=== PATIENT | female | born 1970 | race Hispanic/Latino ===

== ENCOUNTER 2024-03-09 11:24 | Inpatient (IN) | payer OTHER ==
[2024-03-09] MEDS ORDERED: Morphine 4 MG/ML VIAL ONE (12:17)
[2024-03-09] MEDS ORDERED: Acetaminophen/Codeine 30-300mg Tablet PO PRN (12:18)
[2024-03-09] MEDS ORDERED: Ondansetron ODT 4 MG TAB PO PRN (12:18)
[2024-03-09] MEDS ORDERED: Acetaminophen 325 MG TAB PO PRN (12:18)
[2024-03-09 12:36] LABS: #Basophils 0.03 10x3/uL (0.0-0.2); #Eosinophils Less than 0.03 10x3/uL (0.0-0.7); %Basophils 0.4 % (0.0-1.0); %Lymphocytes 7.6 % (21.0-51.0); %Monocytes 10.1 % (0.0-10.0); %Neutrophils 81.7 % (42.0-75.0); Hemoglobin 13.6 g/dL (12.0-16.0); Mean Corpuscular Hemoglobin 31.5 pg (27.0-31.0); Mean Corpuscular Volume 92.6 fL (78.0-98.0); Mean Platelet Volume 9.6 fL (7.4-10.4); Platelet Count 312 10x3/uL (130-400); RBC Distribution Width 13.2 % (11.5-14.5); Red Blood Cell (RBC) Count 4.32 mill/uL (4.20-5.40)
[2024-03-09 12:48] LABS: PTT 25.1 sec (22.9-36.1); Prothrombin Time 13.5 sec (12.0-14.7)
[2024-03-09 12:49] LABS: ALT (SGPT) 21 U/L (8-55); AST (SGOT) 24 U/L (5-34); Albumin 3.7 g/dL (3.5-5.0); Alkaline Phosphatase 76 U/L (40-110); Anion Gap 14 mmol/L (10-20); BUN (Urea Nitrogen) 12 mg/dL (9.8-20.1); Bilirubin, Total 1.4 mg/dL (0.2-1.2); Calc. Creatinine Clearance 0 mL/min (70-130); Calcium 8.6 mg/dL (7.8-10.44); Carbon Dioxide 22 mmol/L (22-29); Chloride 107 mmol/L (98-107); Estimated GFR 85; Globulin 2.5 g/dL (2.4-3.5); Glucose 94 mg/dL (70-105); Potassium 4.3 mmol/L (3.5-5.1); Protein, Total 6.2 g/dL (6.0-8.3); Sodium 139 mmol/L (136-145)
[2024-03-09] MEDS ORDERED: Fentanyl 250 MCG/5 ML VIAL ONE (13:23)
[2024-03-09] MEDS ORDERED: Midazolam HCl 2 mg/2 ml Vial ONE ×2 (13:23→13:32)
[2024-03-09] MEDS ORDERED: Ketamine In 0.9 % NaCl 50 MG/5 ML SYRINGE ONE (13:25)
[2024-03-09] MEDS ORDERED: Lidocaine 2% PF 5 ML VIAL ONE (13:26)
[2024-03-09] MEDS ORDERED: Rocuronium Bromide 10 MG/ML (10ML VIAL) ONE ×2 (13:26→16:00)
[2024-03-09] MEDS ORDERED: Scopolamine 1 mg/72 hour Patch ONE (13:32)
[2024-03-09] MEDS ORDERED: Famotidine/PF 20 mg/2ml Vial ONE (13:33)
[2024-03-09] MEDS ORDERED: CEFAZOLIN 2 GM VIAL ONE (13:47)
[2024-03-09] MEDS ORDERED: SUCCINYLCHOLINE/SOD CL,ISO/PF 200 MG/10 ML SYRINGE FS ONE (13:58)
[2024-03-09] MEDS ORDERED: Ondansetron PF 4 MG/2 ML Vial ONE ×2 (14:10→17:14)
[2024-03-09] MEDS ORDERED: Dexamethasone 4 mg/ml Vial ONE (14:10)
[2024-03-09] MEDS ORDERED: SUGAMMADEX SODIUM 200 MG/2 ML VIAL ONE (14:14)
[2024-03-09] MEDS ORDERED: PROPOFOL 20 ML ONE (14:20)
[2024-03-09] MEDS ORDERED: Metoprolol Tartrate 5 MG (5 mL) VIAL ONE (15:09)
[2024-03-09] MEDS ORDERED: hydrALAZINE 20 MG/ML VIAL ONE (15:26)
[2024-03-09] MEDS ORDERED: Ondansetron HCl/PF 4 MG/2 ML Vial IVP PRN (17:18)
[2024-03-09] MEDS ORDERED: HYDROmorphone 2 MG/ML VIAL SLOW IVP PRN (17:18)
[2024-03-09] MEDS ORDERED: Promethazine HCl 25 MG/ML VIAL IM PRN (17:18)
[2024-03-09] MEDS ORDERED: Promethazine HCl 25 MG/ML VIAL ONE (17:20)
[2024-03-09] MEDS ORDERED: HYDROmorphone 0.5 MG/0.5 ML SYRINGE ONE ×2 (17:23→18:13)
[2024-03-09] MEDS ORDERED: fentaNYL PF 100 MCG/2 ML SYRINGE ONE (17:23)
[2024-03-09] MEDS ORDERED: Acetaminophen W/ Codeine 5 ML UDCUP PO PRN (17:34)
[2024-03-09] MEDS ORDERED: Ketorolac Tromethamine 30 MG (1 mL) VIAL IVP SCH (18:00)
[2024-03-09] MEDS ORDERED: fentaNYL 50 mcg/mL 1 mL Vial ONE (18:13)
[2024-03-09] MEDS: CEFAZOLIN 2 GM in Sodium Chloride 0.9% 100 ML IVPB SCH (20:43)
[2024-03-09] MEDS: fentaNYL 50 mcg/mL 1 mL Vial SLOW IVP PRN (20:45)
[2024-03-09] MEDS: Ondansetron PF 4 MG/2 ML Vial IVP PRN (20:50)
[2024-03-10 03:24] LABS: #Basophils Less than 0.03 10x3/uL (0.0-0.2); #Eosinophils Less than 0.03 10x3/uL (0.0-0.7); %Basophils 0.2 % (0.0-1.0); %Lymphocytes 2.2 % (21.0-51.0); %Neutrophils 88.1 % (42.0-75.0); Hematocrit 43.8 % (36.0-47.0); Hemoglobin 14.5 g/dL (12.0-16.0); Mean Corpuscular HGB CONC 33.1 g/dL (32.0-36.0); Mean Corpuscular Hemoglobin 30.4 pg (27.0-31.0); Mean Corpuscular Volume 91.8 fL (78.0-98.0); Mean Platelet Volume 10.5 fL (7.4-10.4); Platelet Count 357 10x3/uL (130-400); RBC Distribution Width 13.3 % (11.5-14.5); Red Blood Cell (RBC) Count 4.77 mill/uL (4.20-5.40)
[2024-03-10 03:43] LABS: ALT (SGPT) 119 U/L (8-55); AST (SGOT) 208 U/L (5-34); Albumin 3.2 g/dL (3.5-5.0); Alkaline Phosphatase 74 U/L (40-110); Anion Gap 14 mmol/L (10-20); BUN (Urea Nitrogen) 12 mg/dL (9.8-20.1); Bilirubin, Total 0.9 mg/dL (0.2-1.2); Calc. Creatinine Clearance 101 mL/min (70-130); Calcium 8.4 mg/dL (7.8-10.44); Carbon Dioxide 21 mmol/L (22-29); Chloride 106 mmol/L (98-107); Estimated GFR 93; Globulin 2.9 g/dL (2.4-3.5); Glucose 168 mg/dL (70-105); Potassium 4.3 mmol/L (3.5-5.1); Protein, Total 6.1 g/dL (6.0-8.3); Sodium 137 mmol/L (136-145)
[2024-03-10] MEDS ORDERED: hydrALAZINE 20 MG/ML VIAL SLOW IVP PRN (03:47)
[2024-03-10] MEDS ORDERED: Labetalol HCl 100 MG/20 ML VIAL SLOW IVP PRN (03:47)
[2024-03-10] MEDS: Labetalol HCl 100 MG/20 ML VIAL SLOW IVP PRN (06:22)
[2024-03-10] MEDS: Labetalol HCl 100 MG/20 ML VIAL ONE (06:25)
[2024-03-10] MEDS: Enoxaparin 40 MG (0.4 mL) SYRINGE SC SCH (08:15)
[2024-03-10] MEDS: Morphine 2 MG/ML VIAL SLOW IVP PRN (11:32)
[2024-03-10] MEDS: Acetaminophen 650 MG/20.3 ML UDCUP PO PRN (12:23)
[2024-03-10] MEDS: Simethicone Chewable 80 MG TAB PO PRN (17:54)
[2024-03-10] MEDS: D5 1/2 NS w/10 mEq KCl 1,000 ML/1,000 ML BAG IV SCH (19:51)
[2024-03-11 05:00] LABS: Hematocrit 35.8 % (36.0-47.0); Hemoglobin 11.8 g/dL (12.0-16.0); Mean Platelet Volume 10.4 fL (7.4-10.4); Platelet Count 335 10x3/uL (130-400); RBC Distribution Width 13.2 % (11.5-14.5); Red Blood Cell (RBC) Count 3.81 mill/uL (4.20-5.40)
[2024-03-11 05:37] LABS: Anion Gap 13 mmol/L (10-20); BUN (Urea Nitrogen) 12 mg/dL (9.8-20.1); Calc. Creatinine Clearance 93 mL/min (70-130); Calcium 8.4 mg/dL (7.8-10.44); Carbon Dioxide 24 mmol/L (22-29); Chloride 103 mmol/L (98-107); Estimated GFR 84; Glucose 156 mg/dL (70-105); Sodium 136 mmol/L (136-145)
[2024-03-11 05:39] LABS: Band 22 % (5-11); Lymphocytes 6 % (21-51); Macrocytosis SLIGHT = 6-15 cells HPF (0-5); Monocytes 6 % (0-10); Neutrophil 66 % (42-75); Platelet Adequacy Comment Platelets Normal; Polychromasia SLIGHT = 2-3 cells HPF (0-2)
[2024-03-11 06:30] VITALS: BMI 28.0
[2024-03-11] MEDS ORDERED: Multivit, Adult Inj 10 ML VIAL IV SCH (11:30)
[2024-03-11] MEDS: Thiamine HCl 200 MG/2 ML VIAL SLOW IVP SCH (14:14)
[2024-03-11] MEDS: Multivitamins, Adult 10 ML in Sodium Chloride 0.9% 500 ML IV SCH (14:16)
[2024-03-11] MEDS: Folic Acid 0.4 MG in Admixture Fee 1 EACH SC SCH (14:17)
[2024-03-12] MEDS ORDERED: MD-Gastroview 120 ML BOT ONE (08:21)
[2024-03-12] MEDS ORDERED: Folic Acid 5 MG/ML MDV SC SCH (09:00)
[2024-03-13 05:10] LABS: #Basophils 0.03 10x3/uL (0.0-0.2); %Basophils 0.4 % (0.0-1.0); %Eosinophils 2.9 % (0.0-10.0); %Lymphocytes 10.5 % (21.0-51.0); %Monocytes 12.1 % (0.0-10.0); %Neutrophils 73.3 % (42.0-75.0); Hematocrit 28.8 % (36.0-47.0); Hemoglobin 9.4 g/dL (12.0-16.0); Mean Corpuscular HGB CONC 32.6 g/dL (32.0-36.0); Mean Corpuscular Hemoglobin 30.1 pg (27.0-31.0); Mean Corpuscular Volume 92.3 fL (78.0-98.0); Mean Platelet Volume 9.8 fL (7.4-10.4); Platelet Count 332 10x3/uL (130-400); RBC Distribution Width 12.9 % (11.5-14.5); Red Blood Cell (RBC) Count 3.12 mill/uL (4.20-5.40)
[2024-03-13 05:18] LABS: Anion Gap 11 mmol/L (10-20); BUN (Urea Nitrogen) 7 mg/dL (9.8-20.1); Calc. Creatinine Clearance 130 mL/min (70-130); Calcium 8.6 mg/dL (7.8-10.44); Carbon Dioxide 25 mmol/L (22-29); Chloride 103 mmol/L (98-107); Estimated GFR 107; Glucose 87 mg/dL (70-105); Potassium 3.1 mmol/L (3.5-5.1); Sodium 136 mmol/L (136-145)
[2024-03-13] MEDS ORDERED: Multivit, Adult Inj 10 ML VIAL IV SCH (10:45)
[2024-03-13 10:46] VITALS: BMI 28.9
[2024-03-13] MEDS: Thiamine HCl 200 MG/2 ML VIAL SLOW IVP SCH (13:22)
[2024-03-13] MEDS: buPROPion 75 MG TAB PO SCH (20:55)
[2024-03-13] MEDS: QUEtiapine 200 MG TAB PO SCH (20:55)
[2024-03-14] MEDS ORDERED: Pantoprazole DR 40 MG TAB PO SCH (09:00)
[2024-03-14] MEDS ORDERED: BuPROPion XL 150 MG ER.TAB PO SCH (09:00)
[2024-03-14] MEDS ORDERED: Folic Acid 5 MG/ML MDV SC SCH (09:00)
[2024-03-14] MEDS ORDERED: Thiamine 100 MG TAB PO SCH (09:00)
[2024-03-14] MEDS ORDERED: Folic Acid 1 MG TAB PO SCH (09:00)
[2024-03-14] MEDS ORDERED: Cyanocobalamin (Vitamin B-12) 1,000 MCG TAB PO SCH ×2 (09:00)
[2024-03-14] MEDS: Sertraline 100 MG TAB PO SCH (10:09)
[2024-03-14] MEDS: Multivits W-Minerals Liquid 15 ML UDCUP PER TUBE SCH (10:10)
[2024-03-14] MEDS: Folic Acid 0.4 MG in Syringe 0 ML SC SCH (10:10)
[2024-03-14] MEDS: Lansoprazole 30 MG/10 ML UDCUP PO SCH (10:10)
[2024-03-16 16:13] VITALS: BP 112/77; TEMP 98.3
== END 2024-03-16 17:56 | disposition home or self-care (01) | DRG 328 ==
LOC: ERS 11:24 → SDC 12:59 → CCU 20:10 → SURG B 03-10 12:45
PROVIDERS: ADMIT Surgery; ATTEND Surgery
PROC: 0DB60ZZ Excision of Stomach, Open Approach (ICD-10-PCS; principal; 2024-03-09)
PROC: 0DB40ZZ Excision of Esophagogastric Junction, Open Approach (ICD-10-PCS; 2024-03-09)
PROC: 0DH60UZ Insertion of Feeding Device into Stomach, Open Approach (ICD-10-PCS; 2024-03-09)
DX: K28.5 Chronic or unspecified gastrojejunal ulcer with perforation (principal); Z98.84 Bariatric surgery status; Z88.5 Allergy status to narcotic agent; Z88.8 Allergy status to other drugs, medicaments and biological substances; Z91.018 Allergy to other foods; F31.9 Bipolar disorder, unspecified; F17.290 Nicotine dependence, other tobacco product, uncomplicated; Z96.652 Presence of left artificial knee joint; Z79.1 Long term (current) use of non-steroidal anti-inflammatories (NSAID); Z79.899 Other long term (current) drug therapy; Z79.01 Long term (current) use of anticoagulants
CPT/HCPCS: 36415; 74240; 80048; 80053; 85014; 85018; 85025; 85610; 85730; 86850; 86900; 86901; 88307; 93005; 94760; 96374; A4314; A4649; C1776; C1778; J0360; J1100; J1171; J1650; J2250; J2272; J2405; J2550; J2704; J3010; J3411; J3480; J3490; J7030; Q9963; Q9968

== ENCOUNTER 2024-03-23 09:20 | Inpatient (IN) | payer OTHER ==
[2024-03-23 10:15] LABS: #Basophils 0.09 10x3/uL (0.0-0.2); %Basophils 0.5 % (0.0-1.0); %Eosinophils 0.4 % (0.0-10.0); %Lymphocytes 5.9 % (21.0-51.0); %Monocytes 7.8 % (0.0-10.0); %Neutrophils 84.9 % (42.0-75.0); Hemoglobin 11.6 g/dL (12.0-16.0); Mean Corpuscular HGB CONC 33.1 g/dL (32.0-36.0); Mean Corpuscular Hemoglobin 29.8 pg (27.0-31.0); Mean Platelet Volume 9.2 fL (7.4-10.4); Platelet Count 985 10x3/uL (130-400); RBC Distribution Width 13.4 % (11.5-14.5); Red Blood Cell (RBC) Count 3.89 mill/uL (4.20-5.40)
[2024-03-23 10:31] LABS: ALT (SGPT) 10 U/L (8-55); AST (SGOT) 19 U/L (5-34); Albumin 2.8 g/dL (3.5-5.0); Alkaline Phosphatase 87 U/L (40-110); Anion Gap 15 mmol/L (10-20); BUN (Urea Nitrogen) 14 mg/dL (9.8-20.1); Calc. Creatinine Clearance 0 mL/min (70-130); Calcium 9.2 mg/dL (7.8-10.44); Carbon Dioxide 24 mmol/L (22-29); Chloride 101 mmol/L (98-107); Estimated GFR 76; Globulin 4.3 g/dL (2.4-3.5); Glucose 113 mg/dL (70-105); Potassium 3.7 mmol/L (3.5-5.1); Protein, Total 7.1 g/dL (6.0-8.3); Sodium 136 mmol/L (136-145)
[2024-03-23 10:36] LABS: Troponin I Less than 0.010 ng/mL (< 0.028)
[2024-03-23 10:46] LABS: INR-International Normal Ratio 1.2; Prothrombin Time 14.8 sec (12.0-14.7)
[2024-03-23] MEDS ORDERED: Sodium Chloride 0.9% 100 ML ONE (10:50)
[2024-03-23] MEDS ORDERED: Piperacillin/Tazobactam 3.375 GM VIAL ONE (10:50)
[2024-03-23] MEDS ORDERED: Ondansetron PF 4 MG/2 ML Vial ONE (10:50)
[2024-03-23 10:52] LABS: Bacteria/HPF None Seen HPF (None Seen); Bilirubin Negative (Negative); Blood, Urine 1+ (Negative); CAUTI Indications for Culture Dysuria,urgency,freq; Clarity Turbid (Clear); Glucose, Urine (Dipstick) Normal (Negative); Ketone, Urine Negative (Negative); Leukocyte 500 Leu/uL (Negative); Mucous/LPF 1+ LPF (<2+); Nitrite Negative (Negative); Protein, Urine (Dipstick) 50 mg/dL (Neg-Trace); Renal Epithelial 0-3 HPF (None Seen); Specific Gravity, Urine 1.028 (1.002-1.036); Urobilinogen Normal mg/dL (Less than 2); WBC/HPF Greater than 50 HPF (0-3)
[2024-03-23 11:22] LABS: Urine Culture Reflex Yes Yes
[2024-03-23 12:35] LABS: Bilirubin, Total 0.6 mg/dL (0.2-1.2)
[2024-03-23] MEDS ORDERED: Ondansetron PF 4 MG/2 ML Vial IVP PRN (14:45)
[2024-03-23] MEDS ORDERED: Ondansetron ODT 4 MG TAB PO PRN (14:45)
[2024-03-23] MEDS ORDERED: Acetaminophen 325 MG TAB PO PRN (14:45)
[2024-03-23] MEDS: Vancomycin (BATCH) 1.75 GM in Premix 1 BAG IVPB SCH (16:25)
[2024-03-23] MEDS: Piperacillin/Tazobactam 3.375 GM in Sodium Chloride 0.9% 100 ML IVPB SCH (16:37)
[2024-03-23 16:44] VITALS: BMI 26.2
[2024-03-23] MEDS: Ketorolac Tromethamine 30 MG (1 mL) VIAL IVP SCH ×2 (17:33→17:34)
[2024-03-23] MEDS: Acetaminophen 500 MG TAB PO SCH ×2 (17:34→22:35)
[2024-03-23] MEDS: Lactated Ringer's 1,000 ML IV SCH ×3 (18:45→20:31)
[2024-03-23] MEDS: Enoxaparin 40 MG (0.4 mL) SYRINGE SC SCH (20:11)
[2024-03-24 06:43] LABS: #Basophils 0.06 10x3/uL (0.0-0.2); %Basophils 0.5 % (0.0-1.0); %Eosinophils 1.1 % (0.0-10.0); %Lymphocytes 7.1 % (21.0-51.0); %Monocytes 9.2 % (0.0-10.0); %Neutrophils 81.8 % (42.0-75.0); Hematocrit 26.7 % (36.0-47.0); Hemoglobin 8.7 g/dL (12.0-16.0); Mean Corpuscular HGB CONC 32.6 g/dL (32.0-36.0); Mean Corpuscular Hemoglobin 29.8 pg (27.0-31.0); Mean Corpuscular Volume 91.4 fL (78.0-98.0); Mean Platelet Volume 9.1 fL (7.4-10.4); Platelet Count 679 10x3/uL (130-400); RBC Distribution Width 13.4 % (11.5-14.5); Red Blood Cell (RBC) Count 2.92 mill/uL (4.20-5.40)
[2024-03-24 07:00] LABS: Anion Gap 14 mmol/L (10-20); BUN (Urea Nitrogen) 12 mg/dL (9.8-20.1); Calc. Creatinine Clearance 94 mL/min (70-130); Calcium 8.4 mg/dL (7.8-10.44); Carbon Dioxide 21 mmol/L (22-29); Chloride 103 mmol/L (98-107); Estimated GFR 90; Glucose 89 mg/dL (70-105); Potassium 3.5 mmol/L (3.5-5.1); Sodium 134 mmol/L (136-145)
[2024-03-24] MEDS ORDERED: MD-Gastroview 120 ML BOT ONE (10:04)
[2024-03-25] MEDS: Famotidine/PF 20 mg/2ml Vial SLOW IVP SCH (08:25)
[2024-03-25 08:32] LABS: #Basophils 0.05 10x3/uL (0.0-0.2); %Eosinophils 5.3 % (0.0-10.0); %Lymphocytes 20.2 % (21.0-51.0); %Monocytes 11.1 % (0.0-10.0); Hematocrit 23.4 % (36.0-47.0); Hemoglobin 7.8 g/dL (12.0-16.0); Mean Corpuscular HGB CONC 33.3 g/dL (32.0-36.0); Mean Corpuscular Hemoglobin 30.2 pg (27.0-31.0); Mean Corpuscular Volume 90.7 fL (78.0-98.0); Mean Platelet Volume 9.9 fL (7.4-10.4); Platelet Count 679 10x3/uL (130-400); RBC Distribution Width 13.4 % (11.5-14.5); Red Blood Cell (RBC) Count 2.58 mill/uL (4.20-5.40)
[2024-03-25 08:49] LABS: Anion Gap 12 mmol/L (10-20); BUN (Urea Nitrogen) 8 mg/dL (9.8-20.1); Calc. Creatinine Clearance 108 mL/min (70-130); Calcium 8.3 mg/dL (7.8-10.44); Carbon Dioxide 22 mmol/L (22-29); Chloride 111 mmol/L (98-107); Estimated GFR 104; Glucose 77 mg/dL (70-105); Potassium 3.3 mmol/L (3.5-5.1); Sodium 142 mmol/L (136-145)
[2024-03-25] MEDS: Fluconazole In NaCl,Iso-Osm 400 MG in Premix 1 BAG IVPB SCH (16:34)
[2024-03-25] MEDS: Betamethasone 0.1% Cream 45 GM TUBE TOP SCH ×2 (16:34→20:12)
[2024-03-26 05:36] LABS: #Basophils 0.08 10x3/uL (0.0-0.2); %Basophils 1.8 % (0.0-1.0); %Eosinophils 5.7 % (0.0-10.0); %Lymphocytes 31.1 % (21.0-51.0); %Monocytes 10.5 % (0.0-10.0); %Neutrophils 50.7 % (42.0-75.0); Hemoglobin 8.1 g/dL (12.0-16.0); Mean Corpuscular HGB CONC 32.4 g/dL (32.0-36.0); Mean Corpuscular Hemoglobin 29.5 pg (27.0-31.0); Mean Corpuscular Volume 90.9 fL (78.0-98.0); Mean Platelet Volume 9.8 fL (7.4-10.4); Platelet Count 615 10x3/uL (130-400); RBC Distribution Width 13.5 % (11.5-14.5); Red Blood Cell (RBC) Count 2.75 mill/uL (4.20-5.40)
[2024-03-26 06:21] LABS: Anion Gap 15 mmol/L (10-20); BUN (Urea Nitrogen) 8 mg/dL (9.8-20.1); Calc. Creatinine Clearance 109 mL/min (70-130); Calcium 8.1 mg/dL (7.8-10.44); Carbon Dioxide 20 mmol/L (22-29); Chloride 110 mmol/L (98-107); Estimated GFR 105; Glucose 84 mg/dL (70-105); Potassium 3.5 mmol/L (3.5-5.1); Sodium 141 mmol/L (136-145)
[2024-03-26 07:40] VITALS: TEMP 97.8
[2024-03-26 15:09] VITALS: BP 112/76
[2024-03-26] MEDS ORDERED: QUEtiapine 200 MG TAB PO SCH (21:00)
[2024-03-27] MEDS ORDERED: BuPROPion XL 150 MG ER.TAB PO SCH (09:00)
[2024-03-27] MEDS ORDERED: Sertraline 100 MG TAB PO SCH (09:00)
== END 2024-03-26 15:20 | disposition home or self-care (01) | DRG 862 ==
LOC: ERS 09:20 → T4-A 16:17
PROVIDERS: ADMIT Specialist; ATTEND Specialist
DX: T81.44XA Sepsis following a procedure, initial encounter (principal); A41.9 Sepsis, unspecified organism; K65.1 Peritoneal abscess; K95.81 Infection due to other bariatric procedure; Y83.8 Other surgical procedures as the cause of abnormal reaction of the patient, or of later complication, without mention of misadventure at the time of the procedure
CPT/HCPCS: 36415; 74018; 74177; 74240; 80048; 80053; 81001; 83605; 83690; 84478; 84484; 85025; 85610; 85730; 87040; 87086; 87324; 87449; 93005; 96365; 96375; J1450; J1650; J1885; J2405; J2543; J3370; J3490; J7120; Q9963

== ENCOUNTER 2024-04-10 17:22 | Emergency (ER) | payer OTHER ==
[~2024-04-10 17:22] MED LIST: GASTROGRAFIN 30 ML BOT ONE; Iopamidol-370 76% 500 ML MDV (1 ML CHARGE) ONE
[2024-04-10 18:01] LABS: #Basophils 0.07 10x3/uL (0.0-0.2); %Eosinophils 6.5 % (0.0-10.0); %Lymphocytes 20.6 % (21.0-51.0); %Monocytes 9.9 % (0.0-10.0); %Neutrophils 61.7 % (42.0-75.0); Hematocrit 37.6 % (36.0-47.0); Mean Corpuscular HGB CONC 31.9 g/dL (32.0-36.0); Mean Corpuscular Hemoglobin 28.7 pg (27.0-31.0); Mean Platelet Volume 10.7 fL (7.4-10.4); Platelet Count 477 10x3/uL (130-400); RBC Distribution Width 13.8 % (11.5-14.5); Red Blood Cell (RBC) Count 4.18 mill/uL (4.20-5.40)
[2024-04-10 18:18] LABS: ALT (SGPT) 18 U/L (8-55); AST (SGOT) 18 U/L (5-34); Albumin 3.5 g/dL (3.5-5.0); Alkaline Phosphatase 86 U/L (40-110); Anion Gap 15 mmol/L (10-20); BUN (Urea Nitrogen) 12 mg/dL (9.8-20.1); Bilirubin, Total 0.8 mg/dL (0.2-1.2); Calc. Creatinine Clearance 0 mL/min (70-130); Calcium 9.1 mg/dL (7.8-10.44); Carbon Dioxide 24 mmol/L (22-29); Chloride 105 mmol/L (98-107); Estimated GFR 90; Globulin 3.9 g/dL (2.4-3.5); Glucose 100 mg/dL (70-105); Potassium 4.3 mmol/L (3.5-5.1); Protein, Total 7.4 g/dL (6.0-8.3); Sodium 140 mmol/L (136-145)
== END 2024-04-11 00:57 | disposition home or self-care (01) ==
LOC: ERS 17:22
DX: T85.838A Hemorrhage due to other internal prosthetic devices, implants and grafts, initial encounter (principal); F17.290 Nicotine dependence, other tobacco product, uncomplicated
CPT/HCPCS: 36416; 74177; 80053; 83605; 83690; 85025; 86850; 86900; 86901; 87040; Q9963; Q9967